=== PATIENT | male | born 1995 | race Caucasian/White ===

== ENCOUNTER 2019-05-19 05:33 | Emergency (ER) | payer OTHER ==
[~2019-05-19] VITALS: Ht 188 cm; Wt 117.9 kg
[2019-05-19] MEDS ORDERED: LIDOCAINE 1% INJ 20 ML 20 ML VIAL ONE (05:40)
--- OUTSIDE RECORDS SUMMARY | 2019-05-19 05:40 | XMS REPORT | Continuity of Care Document ---
Demographics Preferred Language Unknown Marital Status Unknown Evangelical Affiliation Unknown Race Unknown Ethnic Group Unknown Author Organization Unknown Address Unknown Phone Unavailable Allergies There is no data. Medications There is no data. Problems There is no data. Procedures There is no data. Results There is no data. Encounters ACCT No. Visit Date/Time Discharge Status Pt. Type Provider Facility Loc./Unit Complaint [id number] 09/22/2012 13:26:48 RECURRING
--- NOTE | 2019-05-19 06:08 | ED Upper Extremity ---
General Chief Complaint: Laceration Stated Complaint: L FINGER LACERATION Nursing Triage Note: PT COMPLAINING OF A LEFT INDEX FINGER LACERATION Nursing Sepsis Screen: No Definite Risk Source: patient Exam Limitations: no limitations History of Present Illness Date Seen by Provider: May 19, 2019 Time Seen by Provider: 05:50 Initial Comments 24 yo male presents with laceration to left index finger. pt was at work at [address] when a grinding wheel "flew apart" and struck his left index finger. pt with an approx 3 cm laceration to dorsal aspect of finger, has full but painful rom. no other injury reported. Onset: just prior to arrival Allergies and Home Medications Allergies Coded Allergies: No Known Drug Allergies (Unverified , 05/19/19) Patient Home Medication List Home Medication List Reviewed: Yes Review of Systems Constitutional: no symptoms reported Cardiovascular: no symptoms reported Gastrointestinal: no symptoms reported Musculoskeletal: see HPI Skin: see HPI Past Ijtothu-Uvcrxc-Cxfbie Hx Past Med/Social Hx: Reviewed Nursing Past Med/Soc Hx Patient Social History Recent Foreign Travel: No Contact w/Someone Who Travel: No Recent Infectious Disease Expo: No Recent Hopitalizations: No Physical Abuse: No Sexual Abuse: No Mistreated: No Past Medical History Surgeries: Yes Adenoidectomy, Tonsillectomy Respiratory: No Cardiac: No Neurological: No Genitourinary: No Gastrointestinal: No Musculoskeletal: No Endocrine: No HEENT: No Cancer: No Psychosocial: Yes Anxiety Integumentary: No Blood Disorders: No Physical Exam Vital Signs Vital Signs - First Documented 05/19/19 05:44 Temp 97.6 Pulse 75 Resp 18 B/P (MAP) 172/93 (119) Pulse Ox 96 O2 Delivery Room Air Capillary Refill : Less Than 3 Seconds Height, Weight, BMI Height: 6'2.00" Weight: 260lbs. oz. 117.723867ud; BMI Method:Stated General Appearance: WD/WN, no apparent distress Cardiovascular: normal peripheral pulses, regular rate, rhythm Respiratory: chest non-tender, lungs clear Gastrointestinal: soft Hand: normal ROM Skin: other (3 cm jagged laceration left index finger ) Procedures/Interventions Wound Location: Upper Extremities (dorsal aspect left index finger ) Wound Length (cm): 3 Wound's Depth, Shape: irregular Wound Explored: no foreign body removed Anesthesia: 1% Lidocaine Wound Debrided: minimal Suture: Plain Suture Size: 4-0 Number of Sutures: 5 Sterile Dressing Applied?: Yes Progress/Results/Core Measures Results/Orders My Orders Orders - OFE SANTOS DO Finger(S) (05/19/19 05:59) Wound Dressing-Ed (05/19/19 06:30) Lidocaine 1% Inj 20 Ml (Xylocaine 1% Inj (05/19/19 06:30) Vital Signs/I&O 05/19/19 05:44 Temp 97.6 Pulse 75 Resp 18 B/P (MAP) 172/93 (119) Pulse Ox 96 O2 Delivery Room Air Blood Pressure Mean: 119 Diagnostic Imaging Diagonstic Imaging: Xray Plain Films/CT/US/NM/MRI: hand Reviewed: Reviewed by Me Departure Impression Primary Impression: Laceration of left index finger w/o foreign body w/o damage to nail Qualified Codes: S61.211A - Laceration without foreign body of left index finger without damage to nail, initial encounter Disposition: HOME, SELF-CARE Condition: Stable Departure-Patient Inst. Referrals: DENIA MALIK DO (PCP/Family) Primary Care Physician Patient Instructions: Laceration Repair With Stitches (DC) Add. Discharge Instructions: Return to ER for suture removal 10-14 days Clean with warm soapy water Tylenol and ibuprofen as needed for pain All discharge instructions reviewed with patient and/or family. Voiced understan obdulia. Work/School Note: Work Release Form Date Seen in the Emergency Department: May 19, 2019 Return to Work: May 20, 2019 Other Restrictions Listed Below: Keep finger clean and dry, clean with warm soapy water OFE SANTOS DO May 19, 2019 06:08
--- NOTE | 2019-05-19 06:19 | Diagnostic Imaging Report ---
INDICATION: Index finger laceration. FINDINGS: 3 views of left index finger show no fracture or dislocation. IMPRESSION: Negative left index finger. Dictated by: Dictated on workstation # [id number]
[2019-05-19] MEDS ORDERED: LIDOCAINE 1% INJ 20 ML 20 ML VIAL INJ ONE (06:30)
[2019-05-19 06:48] VITALS: BP 168/96
== END 2019-05-19 06:49 | disposition home or self-care (01) ==
LOC: ER FS 05:36
DX: S61.211A Laceration without foreign body of left index finger without damage to nail, initial encounter (principal); F41.9 Anxiety disorder, unspecified; Z90.89 Acquired absence of other organs; W22.8XXA Striking against or struck by other objects, initial encounter
CPT/HCPCS: 12001; 73140

== ENCOUNTER 2021-07-05 22:44 | Emergency (ER) | payer BC ==
[~2021-07-05] VITALS: Ht 187.9 cm; Wt 154.2 kg
--- NOTE | 2021-07-05 22:54 | ED Lower Extremity ---
General Chief Complaint: Lower Extremity Stated Complaint: RT FOOT PAIN Source: patient History of Present Illness Date Seen by Provider: Jul 05, 2021 Time Seen by Provider: 22:49 Initial Comments 26-year-old male presenting with complaints of pain, bruising, swelling to his right foot. He was running through the house and accidentally hit his foot against the door. He has pain especially to the toes and lateral aspect of his right foot. He has significant bruising to the right fourth toe. He has some swelling to the foot and toes. He is able to move his toes and foot but it is painful for him. He has been bearing some weight but states it is painful. After the injury happened he had sat down with friends and family and drink 4 or 5 beers to help with the pain. He thought that it would get better but when he went to stand back up his pain was more severe and he decided to come be seen in the ED. Especially after taking off his sock and seeing the bruising and swelling to his painful foot he decided to come in and be evaluated tonight. He denies prior fractures to the foot. He has not taking any pain medication but did drink 4 or 5 beers to try and help with pain. Onset: this evening Severity: severe Pain/Injury Location: right foot, right 1st toe, right 2nd toe, right 3rd toe, right 4th toe, right 5th toe Method of Injury: direct blow Modifying Factors: Worse With Movement Allergies and Home Medications Allergies Coded Allergies: No Known Drug Allergies (Unverified , 05/19/19) Patient Home Medication List Home Medication List Reviewed: Yes Hydrocodone/Acetaminophen (Hydrocodone-Acetamin 5-325 mg) 1 Each Tablet, 1 TAB PO Q4H PRN for PAIN-SEVERE (8-10) Prescribed by: ELIEZER EDGAR on 07/06/21 0004 Ibuprofen (Ibuprofen) 800 Mg Tablet, 800 MG PO Q8H PRN for PAIN Prescribed by: ELIEZER EDGAR on 07/06/21 0004 Review of Systems Constitutional: no symptoms reported EENTM: no symptoms reported Respiratory: no symptoms reported Cardiovascular: no symptoms reported Gastrointestinal: no symptoms reported Genitourinary: no symptoms reported Musculoskeletal: see HPI Skin: see HPI, change in color (bruising to right 4th toe) Psychiatric/Neurological: Denies Numbness, Denies Paresthesia Past Yyjwixc-Engqta-Chumfa Hx Past Medical History Surgeries: Yes Adenoidectomy, Tonsillectomy Respiratory: No Cardiac: No Neurological: No Genitourinary: No Gastrointestinal: No Musculoskeletal: No Endocrine: No HEENT: No Cancer: No Psychosocial: Yes Anxiety Integumentary: No Blood Disorders: No Physical Exam Vital Signs Vital Signs - First Documented 07/05/21 22:55 Temp 36.6 Pulse 103 Resp 16 B/P (MAP) 170/100 (123) Pulse Ox 97 O2 Delivery Room Air Capillary Refill : Height, Weight, BMI Height: 6'2.00" Weight: 260lbs. oz. 117.087153dt; BMI Method:Stated General Appearance: mild distress, obese Cardiovascular: normal peripheral pulses Knees: bilateral knee non-tender, bilateral knee normal inspection, bilateral knee normal range of motion Ankles: right ankle non-tender, right ankle normal inspection, right ankle normal range of motion, right ankle no evidence of injury Feet: right foot ecchymosis (4th toe), right foot limited range of motion (due to pain), right foot soft tissue tenderness, right foot swelling Neurologic/Tendon: normal sensation, normal motor functions, normal tendon functions Neurologic/Psychiatric: alert, oriented x 3 Skin: warm/dry, ecchymosis (right 4th toe) Procedures/Interventions Suture Size: 4-0 Progress/Results/Core Measures Results/Orders My Orders Orders - ELIEZER EDGAR MD Foot 3 View Right (07/05/21 23:03) Ice: Apply To Affected Area (07/05/21 23:03) Elevate Affected Extremity (07/05/21 23:03) Crutches (07/05/21 23:50) Post-Op Shoe (07/05/21 23:50) Rx-Hydrocodone/Apap 5-325 Mg (Rx-Vicodin (07/06/21 00:00) Vital Signs/I&O 07/05/21 22:55 Temp 36.6 Pulse 103 Resp 16 B/P (MAP) 170/100 (123) Pulse Ox 97 O2 Delivery Room Air Progress Progress Note #1: Progress Note Since he has had several beers to drink prior to arrival will order x-rays and use ice and elevation to help with pain. Treatment depending on imaging results Progress Note #2: Progress Note X-rays showed fracture of the distal portion of the proximal phalanx of the third and fourth toes. Placed in postop shoe and use crutches for weightbearing as tolerated. Hydrocodone for severe pain. Ice, rest, elevation. Call Thursday to follow-up with orthopedics to see when he can be released back to work. 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 Diagnostic Imaging Diagonstic Imaging: Xray Plain Films/CT/US/NM/MRI: other (Foot) Comments NAME: [facility] REC#: [id number] PT STATUS: REG ER : 1995 PHYSICIAN: ELIEZER EDGAR MD ADMIT DATE: 07/05/21/ER FS Draft Date of Exam:07/05/21 FOOT 3 VIEW RIGHT INDICATION: Pain and bruising in the foot after hitting against door earlier today. COMPARISON: None available. TECHNIQUE: 3 views of right foot were obtained without weightbearing. FINDINGS: There is an acute, mildly comminuted fracture involving the 3rd proximal phalanx head. This has intra-articular extension and less than 2 mm articular surface depression of the lateral osteoarticular fragment. There is also a minimally impacted fracture of the 4th proximal phalanx head without articular surface incongruency. No other acute fracture. Mild soft tissue swelling in the forefoot. No osseous tarsal coalition. IMPRESSION: Acute, minimally depressed fractures of the 3rd and 4th proximal phalanx heads. Dictated on workstation # [id number] Dict: 07/05/21 2319 Trans: 07/05/21 2324 [facility] [id number] Interpreted by: FATOUMATA MEYER MD Electronically signed by: Reviewed: Reviewed by Me Departure Impression Primary Impression: Closed fracture of phalanx of right third toe Qualified Codes: S92.501A - Displaced unspecified fracture of right lesser toe(s), initial encounter for closed fracture Additional Impression: Closed fracture of phalanx of right fourth toe Qualified Codes: S92.501A - Displaced unspecified fracture of right lesser toe(s), initial encounter for closed fracture Disposition: 01 HOME, SELF-CARE Condition: Stable Departure-Patient Inst. Decision time for Depature: 23:57 Referrals: DENIA MALIK DO (PCP/Family) Primary Care Physician Patient Instructions: How to Use Crutches, Toe Fracture ED Add. Discharge Instructions: Wear post op shoe for support and to help prevent bending and moving your toes when you walk. Crutches to help with weight bearing as you tolerate it. When you can tolerate it, nitesh taping the 4th toe and pinky toe together, and the 2nd and 3rd toes together would help give stability for your toe fractures. Call Thursday to [phone] to get follow up with Nurse Practitioner Lino Avery and Dr. Cervantes with Orthopedics about your toe fractures. Ice 15-20 minutes every few hours as needed for pain and swelling and bruising. Try to elevate your foot above waist level as much as possible to help with pain and swelling. Use Ibuprofen for pain and inflammation. Hydrocodone for severe pain. If you have to use much of the Hydrocodone it can cause constipation since it is a narcotic. Consider taking Miralax or a laxative to help keep your stools loose and regular. All discharge instructions reviewed with patient and/or family. Voiced u nderstanding. Scripts Hydrocodone/Acetaminophen (Hydrocodone-Acetamin 5-325 mg) 1 Each Tablet 1 TAB PO Q4H PRN for PAIN-SEVERE (8-10) for 5 Days, #30 TAB 0 Refills Prov: ELIEZER EDGAR MD 07/06/21 Ibuprofen (Ibuprofen) 800 Mg Tablet 800 MG PO Q8H PRN for PAIN for 10 Days, #30 TAB 0 Refills Prov: ELIEZER EDGAR MD 07/06/21 Work/School Note: Work Release Form Date Seen in the Emergency Department: Jul 05, 2021 Return to Work: Jul 22, 2021 Restrictions: Need Release from Doctor Other Restrictions Listed Below: Use crutches and Ortho shoe until cleared by Orthopedics ELIEZER EDGAR MD Jul 05, 2021 22:54
--- NOTE | 2021-07-05 23:24 | Diagnostic Imaging Report ---
INDICATION: Pain and bruising in the foot after hitting against door earlier today. COMPARISON: None available. TECHNIQUE: 3 views of right foot were obtained without weightbearing. FINDINGS: There is an acute, mildly comminuted fracture involving the 3rd proximal phalanx head. This has intra-articular extension and less than 2 mm articular surface depression of the lateral osteoarticular fragment. There is also a minimally impacted fracture of the 4th proximal phalanx head without articular surface incongruency. No other acute fracture. Mild soft tissue swelling in the forefoot. No osseous tarsal coalition. IMPRESSION: Acute, minimally depressed fractures of the 3rd and 4th proximal phalanx heads. Dictated by: Dictated on workstation # [id number]
[2021-07-06] MEDS ORDERED: IBUP-1780 PO (00:04)
[2021-07-06] MEDS ORDERED: ACHD5005 PO (00:04)
[2021-07-06 00:14] VITALS: BP 170/100
== END 2021-07-06 00:14 | disposition home or self-care (01) ==
LOC: EDUNIT# 22:44 → ER FS 22:46
DX: S92.511A Displaced fracture of proximal phalanx of right lesser toe(s), initial encounter for closed fracture (principal); E66.9 Obesity, unspecified; W22.03XA Walked into furniture, initial encounter; Y92.009 Unspecified place in unspecified non-institutional (private) residence as the place of occurrence of the external cause
CPT/HCPCS: 73630

== ENCOUNTER → 2021-07-22 | Outpatient (CLI) | payer BC ==
[~2021-07-22] MED LIST: ACHD5005 PO; IBUP-1780 PO
--- NOTE | 2021-07-22 12:21 | Diagnostic Imaging Report ---
INDICATION: Foot fracture follow-up. COMPARISON: 07/05/2021. FINDINGS: Three views of the right foot demonstrate stable essentially unchanged fractures of the distal aspects of the proximal phalanx of the third and fourth digits. No overt callus is seen. Alignment is stable. No new injury identified. IMPRESSION: Stable unchanged third and fourth proximal phalanx fractures. Dictated by: Dictated on workstation # [id number]
== END ==
LOC: RAD FS 11:10
PROVIDERS: ATTEND Nurse Practitioner
DX: S92.334A Nondisplaced fracture of third metatarsal bone, right foot, initial encounter for closed fracture (principal); S92.534A Nondisplaced fracture of distal phalanx of right lesser toe(s), initial encounter for closed fracture; X58.XXXA Exposure to other specified factors, initial encounter
CPT/HCPCS: 73630